=== PATIENT | female | born 1990 | race Caucasian/White ===

== ENCOUNTER → 2016-03-08 | Outpatient (CLI) | payer OTHER ==
--- NOTE | 2016-03-08 18:46 | US ---
Ultrasound, Neck Soft Tissues History: R59.0, enlarged lymph node. COMPARISON: Ultrasound May 2013. Technique: Longitudinal and transverse ultrasound imaging of the neck soft tissues anteriorly. Findings: There are multiple enlarged bilateral anterior cervical lymph nodes noted. In the area of p alpable concern on the right there is a 3.4 x 1.3 x 0.7 cm submandibular region lymph node which prev iously measured 3.3 x 0.7 cm. Also in the right level 2 there is a 1.8 x 1.2 x 0.3 cm lymph node. In the left neck level 2 there is a 1.7 x 1.5 x 0.6 cm lymph node. In the left neck level 4 region th ere is a 1.7 x 0.7 x 0.5 cm lymph node. IMPRESSION: 1. Nonspecific probably stable bilateral neck lymphadenopathy. 2. The largest right submandibular lymph node appears similar in size to 2014 study. 3. Consider MRI neck soft tissues if there is continued clinical concern.
== END ==
LOC: FIMAGING 12:25
PROVIDERS: ATTEND Internal Medicine
DX: R59.1 Generalized enlarged lymph nodes (principal)